=== PATIENT | male | born 1985 | race Caucasian/White ===

== ENCOUNTER 2016-05-29 08:03 | Day surgery (SDC) | payer OTHER ==
[2016-05-29] VITALS (10 sets, daily range): BP systolic 107–141; BP diastolic 7–82; PULSE 70–105; RESP 8–16; O2SAT 95–100
[~2016-05-29] VITALS: Ht 180.3 cm; Wt 70.7 kg
[~2016-05-29 08:03] MED LIST: CELE100C85 PO; CYCL10TA9 PO; CeFAZolin Inj 2 GM in IV Premix 1 EACH IV ONE; DULO20CA18 PO; HYDR-4003 PO; Lactated Ringer's 1,000 ML IV SCH; SECU150S SQ
[2016-05-29] MEDS ORDERED: MetoCLOpramide 5 mg/mL 2 mL Inj ONE (08:04)
[2016-05-29] MEDS ORDERED: Dexamethasone 4 mg/mL Inj ONE (08:04)
[2016-05-29] MEDS ORDERED: fentaNYL-PF 50 mCg/mL 2 mL Inj ONE (08:04)
[2016-05-29] MEDS ORDERED: Ondansetron 2 mg/mL 2 mL Inj ONE (08:04)
[2016-05-29] MEDS ORDERED: Lidocaine 1%-Epi 1:100,000 20 mL Inj ONE (08:04)
[2016-05-29] MEDS ORDERED: Lactated Ringer's 500 ML IV PRN (10:21)
[2016-05-29] MEDS ORDERED: Lactated Ringer's 1,000 ML IV SCH (10:21)
--- NOTE | 2016-05-29 10:21 | PCM.HPANE ---
Patient Data Surgeon Admitting Provider: Attending Provider:Lars Connell DO Primary Care Physician:Anshu Jensen PA-C Other Provider:Eirk Gonzales Anesthesia Reason for Visit Right Ankle Retained Painful Hardware Ht/WT & BMI Height (Feet): 5 Height (Inches): 11 Weight (Kilograms): 70.7 Body Mass Index 21.00 Allergies Coded Allergies: No Known Allergies (Verified Allergy, Unknown, 05/25/16) Past Anesthesia History Anesthesia History: Denies:: Abnormal Airway, Anesthesia Reactions, Difficult Intubation, Fam Anesthesia Reaction, Fam Malignant Hypertherm Diabetes History Hx Diabetes?: No MRSA MRSA: No (7-8 years ago - possibly- unsure) Medications Hypertension Medication: No Home Meds Incl Beta Josie: No Reported Medications Hydrocodone-Acetaminophen 5-325 mg 1 Each Tablet1 Tablet PO Q4H PRN For Pain Ref 0 05/23/16 Duloxetine 20 Mg Capsule.dr20 Mg PO DAILY Ref 0 05/23/16 Cyclobenzaprine 10 Mg Tablet5-10 Mg PO TID PRN Spasm 05/23/16 Secukinumab (Cosentyx Syringe)150 Mg/Ml [id number] Mg SQ [id number] 05/23/16 Celecoxib 100 Mg [id number] Mg PO BID 05/23/16 History HEENT History: Denies:: Abnormal Airway Cataracts Difficult Intubation Dysphagia Glaucoma Hearing Problem Sinus Problem TMJ Teeth Condition: Broken Teeth Cardiovascular History: Denies:: AICD Abdominal Aortic Aneurism Cardiac Surgery Congestive Heart Failure Edema Heart Murmur Hypertension Irregular Heartbeat Pacemaker Hx of Respiratory Problem?: No Respiratory History: Denies:: Asthma COPD Emphysema Oxygen Administration Pneumonia Tuberculosis Use of C-PAP Machine Use of Inhalers / NEBS Hx Neurologic Problems?: Yes Neurological History: Positive for:: Headaches (once or twice yearly) Denies:: CVA Dementia Dizziness Multiple Sclerosis Parkinson's Disease Seizures TIA Hx of GI Problems?: No Gastrointestinal History: Denies:: Cirrhosis Gall Bladder Disease Gastroesphageal Reflux Gastrointestinal Bleeding Heartburn Hepatitis Hiatal Hernia Liver Disease Rectal Bleeding Hx of Problems?: No Genitourinary History: Denies:: Kidney Stones Urinary Tract Infection Male Hx: Denies:: Prostate Problems Scrotal Mass Testicular Surgery Skin History: Denies:: History Skin Disorders? Pressure Ulcers Hx Musculoskeletal Problems?: Yes Musculoskeletal History: Positive for:: Back Injury (ankylosis spondylosis) Fibromyalgia Musculoskeletal Trauma (right ankle hardware removal current admission problem ) Osteoarthritis Denies:: Degenerative Joint Joint Replacement Systemic Lupus Hx of Psycho/Social Problems?: No Psycho Social History: Denies:: Anxiety Hx Depression Hx Surgeries?: Yes (ORIF ankle) Hx Any Other Health Problems?: Yes Other History: Denies:: Cancer Thyroid Disease History Blood Transfusions: Positive for:: Accept Blood Products? Denies:: Blood Transfusions Hx Diabetes: No Hx Alcohol Use: NoHx Substance Use: NoHave You Smoked inLast 12 mo: Yes Stop/Bang S-Snoring: Do You Snore Loudly: Yes T-Tired: feel tired, fatigued: Yes O-Obsered: Observed not breath: Yes P-Blood Pressure: treated: No B- Body Mass Index > 35 kg/m2: No A- Age over 50: No N- Neck Large Circumference: No G- Gender Male: Yes THOM Total Score: 4 Risk Assessment Category Category 1A: Patient has history of documented sleep apnea, and HAS NOT received any narcotic, sedative or anesthesia administration during this stay. Category 1B: Patient has history of documented sleep apnea, and HAS received any narcotic , sedative or anesthesia administration during this stay Category 2: Patient has SUSPECTED Obstructive Sleep Apnea, and HAS received any narcotic , sedative or anesthesia administration during this stay. Category 3: Patient has SUSPECTED Obstructive Sleep Apnea and HAS NOT received narcotic, sedative or anesthesia administration during this stay. Category 4: Outpatient in Procedural Areas with known sleep apnea or who screen positive for High Risk via the STOP/BANG questionnaire. Exam Exam Vital Signs Vital Signs Date Time Temp Pulse Resp B/P Pulse Ox O2 Delivery O2 Flow Rate FiO2 05/29/16 08:15 37.3 105 16 139/80 98 Room Air General Appearance: Alert, Oriented X3, Cooperative, No Acute Distress HEENT/AIRWAY: MP 2 Lungs: Clear to Auscultation, Normal Air Movement Heart: Exam Unremarkable, Regular Rate/Rhythm, No Murmurs/Rubs/Gallops Plan Impression Patient chart reviewed, patient interviewed and anesthestic plan with risks, benefits, and alternatives discussed, and informed consent obtained. NPO Status: 05/28 2129 ASA Physical Status: ASA2 Mod Systemic Disease Anesthetic Plan: GA Bene/Risks/Altern/Consents: Yes HP Complete Prior to Induction: Yes Arturo Arboleda MD May 29, 2016 08:37
[2016-05-29] MEDS ORDERED: Ondansetron 2 mg/mL 2 mL Inj IVPUSH PRN (10:25)
[2016-05-29] MEDS ORDERED: Dexamethasone 4 mg/mL Inj IVPUSH PRN (10:25)
[2016-05-29] MEDS ORDERED: fentaNYL-PF 50 mCg/mL 2 mL Inj IVPUSH PRN (10:25)
[2016-05-29] MEDS ORDERED: MetoCLOpramide 5 mg/mL 2 mL Inj IVPUSH PRN (10:25)
[2016-05-29] MEDS ORDERED: EPHEDrine Sulfate 50 mg/mL Inj IVPUSH PRN (10:25)
[2016-05-29] MEDS ORDERED: HYDROmorphone 1 mg/mL Inj IVPUSH PRN (10:25)
[2016-05-29] MEDS ORDERED: Phenylephrine 10,000 mCg/mL Inj IVPUSH PRN (10:25)
[2016-05-29] MEDS ORDERED: Bupivacaine-MPF 0.5% W/EPI 30 mL Inj INFILTRATE ONE (10:31)
[2016-05-29] MEDS ORDERED: oxyCODONE-Acetamin 5-325 mg Tablet PO PRN (10:45)
--- NOTE | 2016-05-29 10:46 | PCM.ANEP1 ---
Post Anesthesia Phase 1 PACU Phase 1 Assessment Vital Signs Vital Signs Date Time Temp Pulse Resp B/P Pulse Ox O2 Delivery O2 Flow Rate FiO2 05/29/16 08:15 37.3 105 16 139/80 98 Room Air Anesthetic Administered: GA Level of Alertness: Sleeping, hard to arouse RICE's with Equal Strength: Yes Pain: No Nausea or Vomiting: No Oxygen Delivery: Room Air Lungs: Clear to Auscultation, Normal Air Movement Arturo Arboleda MD May 29, 2016 10:46
--- NOTE | 2016-05-29 11:11 | OP ---
[address] [address] OPERATIVE REPORT PATIENT: WEST PRADHAN : 1985 MR#: [id number] ADMIT: 05/29/2016 JOB ID: [id number] DATE OF SURGERY: 05/29/2016 PREOPERATIVE DIAGNOSIS(ES): Right ankle retained painful hardware. POSTOPERATIVE DIAGNOSIS(ES): Right ankle retained painful hardware. PROCEDURE: Right ankle hardware removal. SURGEON: Lars Connell DO COMBINATION OPERATOR: Navneet Holland DO INDICATIONS: The patient is a 31-year-old male who underwent a right ankle open reduction and internal fixation, and has a painful screw over the lateral malleolus. Wishes to have this removed. We discussed risks, benefits, and possible complications of hardware removal. All questions were answered, and he wished to proceed. PROCEDURE IN DETAIL: The patient is brought to the operating room. He was given a preoperative antibiotic, LMA general anesthetic. The right lower extremity was sterilely prepped and draped. A small incision was made centered over the tip of the screw and dissection was carefully carried through the subcutaneous tissue. He had a large hypertrophic bursa, a portion of which was resected and the screw head was then encountered, cleared of soft tissue and debris, and backed out. The wound was irrigated and then closed with a single interrupted nylon suture. Marcaine with epinephrine was added as an adjunct local anesthetic. Sterile dressings were applied. The patient tolerated the procedure well. Blood loss was minimal. POSTOPERATIVE PROTOCOL: Will have the patient weightbear to tolerance but use crutches and elevate his foot to the extent that it is possible, and follow up in two weeks or sooner if needed. He was given a prescription for Percocet for postop pain.
--- NOTE | 2016-05-30 09:15 | PCM.ANEP2 ---
Post Anesthesia Evaluation ASA/CMS Post Anesthesia VS in Patient's Normal Range?: Yes Resp Stable; Airway Patent?: Yes CV Function & Hydration Stable: Yes Mental Status Recovered?: Yes Pain control Satisfactory?: Yes N/V Control Satisfactory?: Yes Arturo Arboleda MD May 30, 2016 09:15
== END 2016-05-29 23:59 | disposition home or self-care (01) ==
LOC: SAS 08:03
PROVIDERS: ATTEND Orthopaedic Surgery
DX: T85.848A Pain due to other internal prosthetic devices, implants and grafts, initial encounter (principal); M25.571 Pain in right ankle and joints of right foot; M24.659 Ankylosis, unspecified hip; M24.859 Other specific joint derangements of unspecified hip, not elsewhere classified
CPT/HCPCS: 20680; J0690; J1100; J2250; J2405; J2765; J3010; J7120

== ENCOUNTER 2016-06-04 12:43 | Emergency (ER) | payer OTHER ==
[~2016-06-04] VITALS: Ht 180.3 cm; Wt 70.5 kg
[~2016-06-04 12:43] MED LIST changes: -CeFAZolin Inj 2 GM in IV Premix 1 EACH IV ONE; -Lactated Ringer's 1,000 ML IV SCH
[2016-06-04 12:51] VITALS: BP 146/99; PULSE 115; RESP 14; O2SAT 99
--- NOTE | 2016-06-04 13:56 | ED.REPORT ---
HPI-General Illness Date of Service Jun 04, 2016 ED Provider: Marlen Quevedo MD The patient is a 31 year old male with a hx of fibromyalgia who presents to the ED due to right leg pain onset yesterday. Pt had surgery for a broken right ankle 16 years ago following a snowboarding accident and 3 months ago had the ankle hardware removed. Since the recent surgery, he has had pain in his right calf, swelling and pain in his right ankle, and numbness in his toes. Pt denies fever, chest pain, and has not noticed tachycardia. He assumed that his symptoms were just part of his surgery but has noticed an increase in pain over the past few days. His PCP, Dr. Mclain sent him to the ER to do an ultra sound for concern for a blood clot. Nursing Notes Stated Complaint: RT ANKLE Chief Complaint: Extremity Trauma Nursing Notes Reviewed: Yes Allergies: Coded Allergies: No Known Allergies (Verified Allergy, Unknown, 05/25/16) Scheduled Celecoxib (Celecoxib) 100 Mg Capsule 100 MG PO BID Duloxetine (Duloxetine) 20 Mg Capsule.dr 20 MG PO DAILY Secukinumab (Cosentyx Syringe) 150 Mg/Ml Syringe 150 MG SQ [id number] Scheduled PRN Cyclobenzaprine (Cyclobenzaprine) 10 Mg Tablet 5-10 MG PO TID PRN PRN Spasm Hydrocodone-Acetaminophen 5-325 mg (Hydrocodone-Acetaminophen 5-325 mg) 1 Each Tablet 1 TABLET PO Q4H PRN PRN For Pain General Time Seen by MD: 13:42 Chief Complaint Other (right ankle pain) Hx Obtained From: Patient Arrived By: Walk-in Sudden in Onset?: Yes Onset Occurred: 2 days ago Symptom Duration: Since onset Location: : Ankle right: Foot right Severity: Current: Moderate Recent Healthcare: Recent doctor visit, Recent hospitalization, Previous surgery Similar Sx Previous: Yes Past Medical History Past Surgical History right ankle surgery 16 years ago from snowboarding accident hardware removed 3 months ago Ambulatory Status Independent Review of Systems Full Review of Systems Constitutional: Denies: Fever Cardiovascular: Denies: Chest pain Musculoskeletal: Reports: Extremity pain (right calf pain, right ankle pain) Neurologic: Reports: Numbness (right toes) Complete sys rev & neg: except as marked. Physical Exam Vital Signs Vital Signs Date Time Temp Pulse Resp B/P Pulse Ox O2 Delivery O2 Flow Rate FiO2 06/04/16 12:51 36.8 115 14 146/99 99 Room Air Initial VS: Reviewed Head / Eyes: Atraumatic, Normocephalic, PERRL ENT: Mucous membranes moist, Conjunctiva normal, No scleral icterus Neck: Supple, Non-tender, Full range of motion Respiratory: Breath sounds normal, Clear to auscultation, No respiratory distress Abdomen / GI: Soft, Non-tender, No guarding, No rebound, No distention Back: No CVA tenderness Skin: Warm, Dry, No cyanosis Psychiatric: Mood/affect normal, Behavior normal, Normal thought content General/Constitutional: Awake, Alert, Well appearing, Cooperative, Not toxic appearing Heart Rate / Rhythm: Positive: Tachycardia Right Leg / Calf: Positive: Tenderness present... right calf pain Right Ankle: Positive: Swelling present... pain on both lateral and medial malleolar single stitch on lateral of right ankle well healed incision mild post-operative bruising and swelling good pulse on right ankle ankle temperature cold with swelling Interpretation & Diagnostics Lab Results Interpretation Test 06/04/16 13:50 US Focused Lower Ext Venous US negative for DVT Exam Performed by: Radiologist Exam Interpreted by: Radiologist Re-Eval/Medical Decision Time of Eval: 15:15 Patient Status: Condition unchanged, Pain improved Re-Evaluation/Progress Note: Pt rechecked. Pain improved with medication. Informed pt of US results negative for DVT and treatment options. Pt understands and agrees with plan for admission. All questions addressed. Consultation : Referral / Consult Name: Lars Connell Call Returned at: 15:16 Linux Unix Engineer: Agrees with eval, Agrees with plan Note: Talked with Dr. Mclain and will discharge. Counseled Regarding: Diagnosis, Lab results, Need for follow-up, When/why to return to ED Discharge & Departure Primary Impression: Ankle pain Laterality: right Chronicity: unspecified Qualified Code: M25.571 - Pain in right ankle and joints of right foot Ruled Out: DVT (deep venous thrombosis) Disposition: Home Discharge Condition All VS Reviewed: Yes Condition: Stable Additional Instructions: Thank you for coming to the Emergency Department today. Your ultrasound did not show any signs of blood clots. With your history of fibromyalgia, the pain developing in the ankle in the weeks prior to surgery, hyperesthesia (really sensitive skin in the area) and the temperature fluctuations you are having your foot (with good pulses) I am concerned that you may be developing Complex Regional Pain Syndrome (CRPS). Please make sure you walk on your foot as much as possible, you do NOT need a splint. I will give an additional 20 tablets of Percocet to help with the postoperative pain. If your final diagnosis does turn operator to be CPRS, then narcotics are not going to be indicated Keep your appointment with Dr Connell as planned for next week. Please take medication for pain as directed. I would encourage you to do some reading and research about complex regional pain syndrome prior to your follow-up appointment with Return to the Emergency Department if you experience any new or worsening symptoms. We hope you feel better soon! Referrals: Anshu Jensen PA-C (PCP) Scribe Attestation Portion of this note were transcribed by Guy Soler. I, Dr. Quevedo, personally performed the history, physical exam, and medical decision-making: I reviewed and confirmed the accuracy for the information in the transcribed note. Signed by: marla Molina, 06/04/16 1530 copies to: Anshu Jensen PA-C; Lars Connell Shawna L MD Jun 04, 2016 13:56 GUY SOLER Jun 04, 2016 15:04
[2016-06-04] MEDS ORDERED: oxyCODONE-Acetamin 5-325 mg Tablet PO ONE ×2 (14:00→14:15)
[2016-06-04] MEDS ORDERED: 0.9% Sodium Chloride 1,000 ML IV SCH (14:35)
[2016-06-04] MEDS ORDERED: OXYC1TAB24 PO (15:33)
[2016-06-04 15:43] VITALS: BP 135/75; PULSE 99; RESP 18
--- NOTE | 2016-06-04 16:19 | DRSVH ---
PROCEDURE: US VEINOUS LEG DUPLEX UNILATERAL, RIGHT INDICATIONS: unilateral calf pain TECHNIQUE: Real-time imaging, as well as color and pulse Doppler interrogation, were performed of the lower extr emity deep veins from the inguinal ligament to the popliteal fossa. COMPARISON: None. FINDINGS: The deep veins are normally compressible, and free of intraluminal thrombus. Color and pu lse Doppler demonstrate normal phasic intraluminal flow. There is normal augmentation response to di stal compression maneuver. IMPRESSION: 1. No evidence of deep venous thrombosis in the right lower extremity. Dictated by: Murali Madrid M.D. on 06/04/2016 at 16:17 Approved by: Murali Madrid M.D. on 06/04/2016 at 16:18
== END 2016-06-04 15:46 | disposition home or self-care (01) ==
LOC: SED 12:43
DX: M25.571 Pain in right ankle and joints of right foot (principal); M79.661 Pain in right lower leg; M25.471 Effusion, right ankle; R20.0 Anesthesia of skin; Z87.828 Personal history of other (healed) physical injury and trauma; Z98.890 Other specified postprocedural states